=== PATIENT | female | born 1970 | race Caucasian/White ===

== ENCOUNTER 2017-07-04 11:05 | Emergency (ER) | payer MEDICAID ==
--- NOTE | 2017-07-04 12:31 | ED Physician Documentation ---
PD HPI ALTERED MENTAL STATUS - Stated complaint Stated Complaint: AMS - Chief complaint Chief Complaint: Neuro - History obtained from History obtained from: Patient, Family - History of Present Illness Timing - onset: How many days ago (2) Timing - duration: Days (2) Timing - details: Gradual onset Quality / character: Confused (slower to respond than usual and "her voice is totally different" per . States it is more childlike than usual.) Associated symptoms: General weakness, Focal weakness ( thinks the L side of her face looks different.). No: Fever, Headache, Stiff neck, Dyspnea, Cough, NVD, Urinary sx, Seizure activity, Syncope Contributing factors: Recent illness (states not feeling well for a few days). No: Anticoagulated, Diabetic, Cancer, New medication, Recent med change, Recent injury Basline status: Alert and oriented X 3, Ambulatory, Independent Similar symptoms before: Has not had sx before Recently seen: Not recently seen - Additional information Additional information: smokes 1 ppd. no recent travel. No fevers. uses marijuana daily. Review of Systems Ten Systems: 10 systems reviewed and negative Constitutional: denies: Fever, Chills Eyes: reports: Other (states recently started on eyedrops by her eye doctor yesterday for abrasions on her eyes.) Ears: denies: Ear pain Nose: denies: Rhinorrhea / runny nose, Congestion Throat: reports: Other (states had sores in her mouth, but now these are better) Cardiac: denies: Palpitations Respiratory: denies: Cough GI: denies: Abdominal Pain, Nausea, Vomiting, Diarrhea Skin: denies: Rash Musculoskeletal: denies: Neck pain, Back pain Neurologic: denies: Focal weakness, Numbness, Headache PD PAST MEDICAL HISTORY - Past Medical History Past Medical History: Yes GI: GERD Psych: Depression, Anxiety - Past Surgical History Past Surgical History: No - Present Medications Home Medications: Ambulatory Orders Medication Instructions Recorded Confirmed Ofloxacin 0.3% Ophth Drops 2 drops EACHEYE Q8HR 07/04/17 07/04/17 [Ocuflox 0.3% Ophth Drops] Omeprazole [PriLOSEC] 07/04/17 Paroxetine HCl [Paxil] 40 mg PO DAILY 07/04/17 07/04/17 - Allergies Allergies/Adverse Reactions: Allergies Allergy/AdvReac Type Severity Reaction Status Date / Time No Known Drug Allergies Allergy Verified 07/04/17 11:14 - Living Situation Living Situation: reports: With family Living Arrangement: reports: At home - Social History Does the pt smoke?: Yes Smoking Status: Current every day smoker Does the pt drink ETOH?: No Does the pt have substance abuse?: Yes Substance Use and Type: Marijuana - Family History Family history: reports: Non contributory PD ED PE NORMAL - Vitals Vital signs reviewed: Yes - General General: Alert and oriented X 3, No acute distress, Well developed/nourished - HEENT HEENT: Atraumatic, PERRL, EOMI, Ears normal, Moist mucous membranes, Pharynx benign - Neck Neck: Supple, no meningeal sign, No bony TTP - Cardiac Cardiac: RRR, Strong equal pulses - Respiratory Respiratory: No respiratory distress, Clear bilaterally - Abdomen Abdomen: Soft, Non tender, Non distended - Derm Derm: Warm and dry, No rash - Extremities Extremities: No edema, No calf tenderness / cord - Neuro Neuro: Alert and oriented X 3, 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 intact, No motor deficit, No sensory deficit, Normal speech Eye Opening: Spontaneous Motor: Obeys Commands Verbal: Oriented GCS Score: 15 - Psych Psych: Normal mood, Normal affect NIHSS - Time Time: 12:20 - Level of Consciousness Level of consciousness: (0) Alert, Keenly responsive LOC Questions: (0) Answers both Q's correct LOC Commands: (0) Performs both correctly - Gaze Best Gaze: (0) Normal - Visual Visual: (0) No loss - Facial Palsy Facial Palsy: (0) Normal, symmetrical movement - Motor Arms (both separate) Motor Arm (right): (0) No drift Motor Arm (left): (0) No drift - Motor Legs (both separate) Motor Leg (right): (0) No drift Motor Leg (left): (0) No drift - Limb Ataxia Limb Ataxia: (0) Absent - Sensory Sensory: (0) Normal - Best Language Best Language: (0) No aphasia - Dysarthria Dysarthria: (0) Normal - Extinction and Inattention (formally neg Extinction and inattention: (0) No abnormality - Total Score/Results Total Score/Result: 0 Results - Vitals Vitals: Vital Signs - 24 hr 07/04/17 07/04/17 07/04/17 11:12 11:43 13:09 Temperature 36.2 C L Heart Rate 96 80 70 Respiratory 16 15 15 Rate Blood Pressure 144/86 H 122/77 120/79 O2 Saturation 99 100 100 Oxygen O2 Source Room air - EKG (time done) 1115 Rate: Rate (enter#) (82) Rhythm: NSR Hugo: Normal Intervals: Normal VA QRS: Normal Ischemia: Normal ST segments Computer interpretation: Agree with computer - Labs Labs: Laboratory Tests 07/04/17 07/04/17 07/04/17 11:17 11:20 11:20 WBC 8.5 RBC 4.39 Hgb 9.5 L Hct 29.4 L MCV 67.1 L MCH 21.6 L MCHC 32.2 RDW 18.3 H Plt Count 454 H MPV 7.7 L Neut # 6.3 Lymph # 1.5 [place] # 0.4 Eos # 0.1 Baso # 0.0 Absolute Nucleated RBC 0.00 Nucleated RBC % 0.0 Sodium 134 L Potassium 3.6 Chloride 104 Carbon Dioxide 21 Anion Gap 9.0 BUN 9 Creatinine 0.6 Estimated GFR (MDRD) 107 Glucose 110 H POC Whole Bld Glucose 119 H Calcium 9.0 Total Bilirubin < 0.2 L AST 32 ALT 29 Alkaline Phosphatase 81 Total Protein 8.2 Albumin 3.6 Globulin 4.6 H Albumin/Globulin Ratio 0.8 L Lipase 44 Urine Color Urine Clarity Urine pH Ur Specific [place] Urine Protein Urine Glucose (UA) Urine Ketones Urine Occult Blood Urine Nitrite Urine Bilirubin Urine Urobilinogen Ur Leukocyte Esterase Urine RBC Urine WBC Ur Squamous Epith Cells Urine Bacteria Ur Microscopic Review Urine Culture Comments Urine Opiates Screen Ur Oxycodone Screen Urine Methadone Screen Ur Propoxyphene Screen Ur Barbiturates Screen Ur Tricyclics Screen Ur Phencyclidine Scrn Ur Amphetamine Screen U Methamphetamines Scrn U Benzodiazepines Scrn Urine Cocaine Screen U Cannabinoids Screen Ethyl Alcohol 07/04/17 07/04/17 11:20 12:35 WBC RBC Hgb Hct MCV MCH MCHC RDW Plt Count MPV Neut # Lymph # [place] # Eos # Baso # Absolute Nucleated RBC Nucleated RBC % Sodium Potassium Chloride Carbon Dioxide Anion Gap BUN Creatinine Estimated GFR (MDRD) Glucose POC Whole Bld Glucose Calcium Total Bilirubin AST ALT Alkaline Phosphatase Total Protein Albumin Globulin Albumin/Globulin Ratio Lipase Urine Color YELLOW Urine Clarity CLEAR Urine pH 6.0 Ur Specific [place] <=1.005 Urine Protein NEGATIVE Urine Glucose (UA) NEGATIVE Urine Ketones NEGATIVE Urine Occult Blood SMALL H Urine Nitrite NEGATIVE Urine Bilirubin NEGATIVE Urine Urobilinogen 0.2 (NORMAL) Ur Leukocyte Esterase NEGATIVE Urine RBC 0-5 Urine WBC 0-3 Ur Squamous Epith Cells RARE Squamous Urine Bacteria Rare Ur Microscopic Review INDICATED Urine Culture Comments NOT INDICATED Urine Opiates Screen NEGATIVE Ur Oxycodone Screen NEGATIVE Urine Methadone Screen NEGATIVE Ur Propoxyphene Screen NEGATIVE Ur Barbiturates Screen NEGATIVE Ur Tricyclics Screen NEGATIVE Ur Phencyclidine Scrn NEGATIVE Ur Amphetamine Screen POSITIVE H U Methamphetamines Scrn POSITIVE H U Benzodiazepines Scrn NEGATIVE Urine Cocaine Screen NEGATIVE U Cannabinoids Screen POSITIVE H Ethyl Alcohol < 5.0 - Rads (name of study) CT angio head Radiology: Prelim report reviewed, EMP read contemporaneously, See rad report ( No intracranial hemorrhage. No enhancing mass is present. no stenosis) CT angio neck Radiology: Prelim report reviewed, EMP read contemporaneously, See rad report ( No significant narrowing is seen in either cervical ICA are cervical vertebral artery. 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 Asymmetric nodular thickening involving the left aryepiglottic fold is present. Direct visualization could exclude a mass in this region. ) PD MEDICAL DECISION MAKING - ED course Complexity details: reviewed results, re-evaluated patient, considered differential, d/w patient, d/w family ED course: Patient is a 47-year-old female who presented to the emergency department with altered mental status for the past 3 days. No lateralizing signs. No evidence of stroke. No acute findings on CT angiogram of the head or neck. No bleeds. No aneurysms. She was positive for methamphetamine. Initially she denied any drug use, however after the drug screen she admitted to using methamphetamine 3 days ago just prior to the onset of her symptoms. She is back to her baseline currently. Likely that this was secondary to methamphetamine use. Recommend that she stop using methamphetamines. Patient does not want to speak with social work. Patient and family counseled regarding signs and symptoms for which I believe and urgent re-evaluation would be necessary. Patient with good understanding of and agreement to plan and is comfortable going home at this time This document was made in part using voice recognition software. While efforts are made to proofread this document, sound alike and grammatical errors may occur. Departure - Departure Disposition: 01 Home, Self Care Clinical Impression: Methamphetamine abuse Altered mental status Qualifiers: Altered mental status type: unspecified Qualified Code(s): R41.82 - Altered mental status, unspecified Condition: Good Instructions: ED Drug Abuse General Follow-Up: Honey Prajapati ARNP [Primary Care Provider] - Within 1 week Comments: You need to have a referral placed by Honey Prajapati to ENT to evaluate the mass near your vocal cords. This needs to be done urgently. Stay away from methamphetamines. Return if you worsen. 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 Asymmetric nodular thickening involving the left aryepiglottic fold is present. Direct visualization could exclude a mass in this region. Discharge Date/Time: 07/04/17 14:47
[2017-07-04 12:33] LABS: ALBUMIN 3.6 g/dL (3.2-5.5); ALBUMIN/GLOBULIN RATIO 0.8 (1.0-2.2); ALKALINE PHOSPHATASE 81 IU/L (42-121); ALT ALANINE AMINOTRANSFERASE 29 IU/L (10-60); AST ASPARTATE AMINOTRANSFERASE 32 IU/L (10-42); BILIRUBIN,TOTAL < 0.2 mg/dL (0.2-1.0); BUN - BLOOD UREA NITROGEN 9 mg/dL (6-20); CARBON DIOXIDE - CO2 21 mmol/L (21-32); CHLORIDE 104 mmol/L (101-111); CREATININE 0.6 mg/dL (0.4-1.0); GFR - MDRD 107 (>89); GLUCOSE 110 mg/dL (70-100); LIPASE 44 U/L (22-51); SODIUM 134 mmol/L (135-145); TOTAL PROTEIN 8.2 g/dL (6.7-8.2)
[2017-07-04] MEDS ORDERED: IOPAMIDOL-300 100 ML VIAL ONE (12:36)
[2017-07-04 12:38] LABS: BASOPHILS % (AUTO) 0.6 %; EOSINOPHILS # (AUTO) 0.1 10^3/uL (0.0-0.7); EOSINOPHILS % (AUTO) 1.5 %; HGB - HEMOGLOBIN 9.5 g/dL (12.0-16.0); LYMPHOCYTES # (AUTO) 1.5 10^3/uL (1.5-3.5); LYMPHOCYTES % (AUTO) 17.9 %; MEAN CORPUSCULAR HEMOGLOBIN 21.6 pg (27.0-31.0); MEAN CORPUSCULAR HGB CONC 32.2 g/dL (32.0-36.0); MEAN CORPUSCULAR VOLUME 67.1 fL (81.0-99.0); MEAN PLATELET VOLUME 7.7 fL (7.9-10.8); MONOCYTES # (AUTO) 0.4 10^3/uL (0.0-1.0); MONOCYTES % (AUTO) 5.2 %; NEUTROPHILS # (AUTO) 6.3 10^3/uL (1.5-6.6); NEUTROPHILS % (AUTO) 74.8 %; PLT - PLATELET COUNT 454 10^3/uL (130-450); RED BLOOD COUNT 4.39 10^6/uL (4.20-5.40); RED CELL DISTRIBUTION WIDTH 18.3 % (12.0-15.0); WHITE BLOOD COUNT 8.5 x10^3/uL (4.8-10.8)
[2017-07-04 12:46] LABS: MUDS CUTOFF CONCENTRATIONS CUTOFF CONC BELOW:
[2017-07-04 12:52] LABS: BILIRUBIN,URINE NEGATIVE (NEGATIVE); GLUCOSE, URINE (UA) NEGATIVE (NEGATIVE); KETONES,URINE (UA) NEGATIVE (NEGATIVE); LEUKOCYTE ESTERASE, URINE NEGATIVE (NEGATIVE); NITRITE,URINE NEGATIVE (NEGATIVE); OCCULT BLOOD,URINE SMALL (NEGATIVE); PROTEIN,URINE NEGATIVE (NEGATIVE); UROBILINOGEN,URINE 0.2 (NORMAL) E.U./dL (NORMAL)
[2017-07-04] MEDS ORDERED: IOPAMIDOL-300 100 ML VIAL IVP ONE (13:04)
[2017-07-04 13:06] LABS: CLARITY,URINE CLEAR (CLEAR)
[2017-07-04 13:12] VITALS: BP 120/79
[2017-07-04 13:20] LABS: BACTERIA,URINE Rare /HPF (None Seen); COCAINE SCREEN URINE NEGATIVE (NEGATIVE); METHAMPHETAMINES SCREEN, URINE POSITIVE (NEGATIVE); RBC,URINE 0-5 /HPF (0-5); SQUAMOUS EPITHELIAL CELL,UR RARE Squamous (<= Few)
[2017-07-04 13:21] LABS: AMPHETAMINE SCREEN,URINE POSITIVE (NEGATIVE); BENZODIAZEPINES SCREEN, URINE NEGATIVE (NEGATIVE); METHADONE SCREEN, URINE NEGATIVE (NEGATIVE); OPIATE SCREEN, URINE NEGATIVE (NEGATIVE); OXYCODONE SCREEN, URINE NEGATIVE (NEGATIVE); PROPOXYPHENE SCREEN, URINE NEGATIVE (NEGATIVE); TRICYCLIC ANTIDEPRESSANT,URINE NEGATIVE (NEGATIVE)
--- NOTE | 2017-07-04 13:38 | CT Preliminary Report ---
Exam: CT NECK ANGIO IMPRESSION: 1. No significant narrowing is seen in either cervical ICA are cervical vertebral artery. 2. Subtle asymmetric nodular thickening involving the left aryepiglottic fold is present. Direct visu alization could exclude a mass in this region [facility] SITE ID: [id number]
--- NOTE | 2017-07-04 13:51 | CT Preliminary Report ---
Exam: CT HEAD ANGIO IMPRESSION: CT Head: 1. No intracranial hemorrhage. 2. No enhancing masses present CTA Head: 1. No intracranial stenosis [facility] SITE ID: [id number]
--- NOTE | 2017-07-04 14:11 | CT Report ---
EXAM: CT ANGIOGRAM NECK EXAM DATE: 07/04/2017 01:04 PM. CLINICAL HISTORY: ALOC, dysphasia. COMPARISON: CT angiogram head from today. TECHNIQUE: Routine axial helical imaging was performed from the skull base through the aortic arch. I V Contrast: 100 cc Isovue-300. Reconstructions: Routine multiplanar 3D MIP reconstructions. Evaluatio n of arterial stenosis is based on a NASCET method of measurement. In accordance with CT protocol optimization, one or more of the following dose reduction techniques w ere utilized for this exam: automated exposure control, adjustment of mA and/or KV based on patient s ize, or use of iterative reconstructive technique. FINDINGS: Right Carotid: The common carotid, internal carotid, and external carotid arteries are widely patent. No dissection, significant atherosclerotic plaque, or calcification identified. Left Carotid: Minimal noncalcified atherosclerotic plaque is seen along the medial wall of the distal carotid bulb. There is fusiform aneurysmal dilatation of the distal cervical ICA just below the skul l base where it measures up to 5.4 mm in diameter. No significant narrowing is seen in the cervical I CA. Vertebrals: The right vertebral artery is slightly dominant. The appearance of narrowing involving th e distal V1 segment of the right vertebral artery is felt to be due to streak artifact. No definite s tenosis is present in either cervical vertebral artery. No abrupt caliber change is present in either cervical vertebral artery. Great vessel origins: No stenosis is seen involving the great vessel origins. Other: No mass is present in either parotid gland or submandibular gland. The thyroid gland is not significa ntly enlarged. Shotty lymph nodes are seen in the visualized upper mediastinum. No suspicious spiculated mass is pre sent in either lung apex. No nasopharyngeal mass is present. The parapharyngeal fat is symmetric No bulky lymphadenopathy is identified along either internal jugular chain. No mass is present in eit her orbit. There is subtle nodular thickening involving the aryepiglottic fold on the left. IMPRESSION: 1. No significant narrowing is seen in either cervical ICA are cervical vertebral artery. 2. 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 3. Asymmetric nodular thickening involving the left aryepiglottic fold is present. Direct visualizati on could exclude a mass in this region. [facility] Referring Provider Line: [phone] SITE ID: [id number]
--- NOTE | 2017-07-04 14:11 | CT Report ---
EXAM: CT ANGIOGRAM HEAD. CT SCAN OF THE HEAD WITH AND WITHOUT CONTRAST. EXAM DATE: 07/04/2017 01:04 PM CLINICAL HISTORY: ALOC, dysphasia.. COMPARISON: CT angiogram neck from today. TECHNIQUE: 1. CT Scan Head: Using a multidetector scanner, axial images were acquired from the foramen magnum to the skull vertex prior to and following contrast administration. 2. CT Angiogram: Using a multidetector scanner, high-resolution axial images were acquired from the s kull base through vertex following rapid infusion of intravenous contrast. Reformats: Multiplanar MIP reformats were reconstructed. Nascet criteria used for stenosis measurement. IV Contrast: 100 cc Isovue-370. In accordance with CT protocol optimization, one or more of the following dose reduction techniques w ere utilized for this exam: automated exposure control, adjustment of mA and/or KV based on patient s ize, or use of iterative reconstructive technique. FINDINGS: CT HEAD: The ventricles and sulci are within normal limits. Agustin-white matter differentiation is preserved. No extra-axial fluid collection or intracranial hemorrhage is identified. No enhancing mass is present in the brain parenchyma. CT ANGIOGRAM HEAD: No filling defect or high-grade stenosis is present in the M1 segment of either MCA or in the basilar trunk. No significant stenosis is seen in either distal vertebral artery. The posterior cerebral arteries ar e patent. The anterior cerebral arteries are patent. Lobulated areas of enhancement near the distal M 1 segment of the left MCA near its bifurcation are felt to reflect prominent venous structures. Venou s contamination limits the examination. There is an anterior communicating artery present. No saccular aneurysm is present. Expected enhancement is seen in the major dural venous sinuses. IMPRESSION: CT Head: 1. No intracranial hemorrhage. 2. No enhancing mass is present. CTA Head: 1. No intracranial stenosis. [facility] Referring Provider Line: [phone] SITE ID: [id number]
== END 2017-07-04 14:47 | disposition home or self-care (01) ==
LOC: ED 11:05
DX: F15.10 Other stimulant abuse, uncomplicated (principal); R41.82 Altered mental status, unspecified; J38.7 Other diseases of larynx; F17.200 Nicotine dependence, unspecified, uncomplicated
CPT/HCPCS: 36415; 70496; 70498; 80053; 80306; 80320; 81001; 83690; 85025; 93005; 99284; Q9967; 81003; 87086